=== PATIENT | male | born 1985 | race Caucasian/White ===

== ENCOUNTER → 2016-08-21 | Outpatient (REF) | payer OTHER | LOC: M LAB REF 12:44 | PROVIDERS: ATTEND Nurse Practitioner Family | DX: R36.9 Urethral discharge, unspecified (principal); R32 Unspecified urinary incontinence ==

== ENCOUNTER → 2016-09-02 | Outpatient (REF) | payer OTHER, BC | LOC: M SMT 13:10 | PROVIDERS: ATTEND Nurse Practitioner Women's Health | DX: N41.9 Inflammatory disease of prostate, unspecified (principal); R36.9 Urethral discharge, unspecified ==

== ENCOUNTER → 2016-10-01 | Outpatient (CLI) | payer OTHER ==
--- NOTE | 2016-10-01 09:22 | REP ---
Clinical: Pain. Technique: AP, lateral, bilateral oblique and coned-down views. Findings: Mild chronic-appearing compression deformity at the L2 level may represent old injury. Alignment and lordosis is otherwise maintained. No obvious acute fracture / compression injury or subluxation appreciated. Mild to moderate multilevel degenerative changes include endplate sclerosis and irregularity at the L1-2 and L2-3 levels as well as small anterior osteophyte at the L3-4 level along with minimal disc space narrowing at L3-4, L4-5. Impression: Degenerative changes as described above. If the patient remains symptomatic MRI may be warranted for further investigation. Signed by Kirt Cloe MD 10/01/2016 09:13 A
--- NOTE | 2016-10-01 09:34 | REP ---
Clinical: Pain. Technique: AP, lateral, flexion/extension, bilateral oblique and open mouth views. Findings: Moderate focal degenerative disc osteophyte complex at the C6-7 level includes anterior spurring, endplate sclerosis and disc space narrowing. Mild disc space narrowing at the C5-6 level is also appreciated. The remainder of the examination appears relatively normal. Impression: Moderate focal degenerative disc osteophyte complex at the C6-7 level. Signed by Kirt Cole MD 10/01/2016 09:26 A
[2016-10-01 09:59] LABS: MEAN CORPUSCULAR HEMOGLOBIN 34.1 pg (27.0-33.0); MEAN CORPUSCULAR HGB CONC 34.7 g/dl (32.0-36.5); MEAN CORPUSCULAR VOLUME 98.2 fl (80.0-96.0); RED CELL DISTRIBUTION WIDTH 11.9 % (11.5-14.5); WHITE BLOOD COUNT 10.1 K/mm3 (4.0-10.0)
[2016-10-01 10:20] LABS: ALBUMIN/GLOBULIN RATIO 1.29 (1.00-1.93); ALKALINE PHOSPHATASE 43 U/L (45-117); ALT/SGPT 22 U/L (12-78); ANION GAP 6 MEQ/L (8-16); AST/SGOT 16 U/L (15-37); BILIRUBIN,TOTAL 0.5 MG/DL (0.2-1.0); BLOOD UREA NITROGEN 12 MG/DL (7-18); CALCIUM LEVEL 9.4 MG/DL (8.5-10.1); CARBON DIOXIDE LEVEL 33 MEQ/L (21-32); CHLORIDE LEVEL 104 MEQ/L (98-107); CHOLESTEROL LEVEL 212 MG/DL (<200); GLOMERULAR FILTRATION RATE > 60.0 (>60); GLUCOSE, FASTING 88 MG/DL (70-105); POTASSIUM SERUM 4.4 MEQ/L (3.5-5.1); SODIUM LEVEL 143 MEQ/L (136-145); TOTAL PROTEIN 7.1 GM/DL (6.4-8.2); TRIGLYCERIDES LEVEL 191 MG/DL (<150)
[2016-10-01 14:26] LABS: HIV SCRN NEGATIVE (NEGATIVE)
[2016-10-01 14:27] LABS: CONTROL LINE INT CTR LINE PRESENT; HIV SCRN1 NEGATIVE (NEGATIVE)
== END ==
LOC: M WUC 08:13
PROVIDERS: ATTEND Nurse Practitioner Family
DX: M50.323 Other cervical disc degeneration at C6-C7 level (principal); M51.36 Other intervertebral disc degeneration, lumbar region; R39.11 Hesitancy of micturition; R32 Unspecified urinary incontinence; R00.2 Palpitations; Z13.220 Encounter for screening for lipoid disorders; R36.9 Urethral discharge, unspecified; Z11.4 Encounter for screening for human immunodeficiency virus [HIV]; Z78.9 Other specified health status

== ENCOUNTER → 2021-01-04 | Outpatient (REF) | payer OTHER | LOC: M LAB REF 17:03 | PROVIDERS: ATTEND Physician Assistant | DX: J02.9 Acute pharyngitis, unspecified (principal) ==

== ENCOUNTER → 2022-01-08 | Outpatient (REF) | payer OTHER | LOC: M LAB REF 21:50 | PROVIDERS: ATTEND Physician Assistant Medical | DX: R50.9 Fever, unspecified (principal); M79.10 Myalgia, unspecified site ==

== ENCOUNTER → 2024-03-15 | Outpatient (REF) | payer OTHER | LOC: M LAB REF 13:48 | PROVIDERS: ATTEND Nurse Practitioner Family | DX: Z11.9 Encounter for screening for infectious and parasitic diseases, unspecified (principal) ==

== ENCOUNTER → 2024-03-29 | Outpatient (CLI) | payer OTHER | LOC: M EKG 14:52 | PROVIDERS: ATTEND Nurse Practitioner Family | DX: R00.1 Bradycardia, unspecified (principal) ==

== ENCOUNTER → 2024-08-18 | Outpatient (CLI) | payer OTHER, SELFPAY ==
[2024-08-18 18:18] LABS: AMPHETAMINES URINE REFLEX NEGATIVE (NEGATIVE); BARBITURATES URINE REFLEX NEGATIVE (NEGATIVE); BENZODIAZEPINES URINE REFLEX NEGATIVE (NEGATIVE); COCAINE METABOLITE URINE REFLE NEGATIVE (NEGATIVE); METHADONE URINE REFLEX NEGATIVE (NEGATIVE)
[2024-08-18 18:19] LABS: OPIATES URINE REFLEX NEGATIVE (NEGATIVE); PHENCYCLIDINE URINE REFLEX NEGATIVE (NEGATIVE)
[2024-08-18 18:42] LABS: CANNABINOIDS URINE REFLEX PENDING CONFIRMATION (NEGATIVE)
[2024-08-22 02:53] LABS: UR ALCOHOL NOTE Please note:; URINE ALCOHOL ETHYL Negative; URINE ALCOHOL NOTE 2 Please note:
[2024-08-22 12:07] LABS: Cannabinoid Positive (.); Carboxy THC Conf, MS, UR >300 ng/mL (Cutoff=10)
== END ==
LOC: M PLALAB 14:28
PROVIDERS: ATTEND Registered Nurse Psychiatric/Mental Health
DX: Z79.899 Other long term (current) drug therapy (principal)
CPT/HCPCS: 36415; 80307; G0480

== ENCOUNTER → 2024-08-24 | Outpatient (CLI) | payer OTHER, SELFPAY | LOC: M SOG 07:54 | PROVIDERS: ATTEND Physician Assistant | DX: M50.322 Other cervical disc degeneration at C5-C6 level (principal); M50.323 Other cervical disc degeneration at C6-C7 level ==

== ENCOUNTER 2024-09-09 13:37 | Outpatient (RCR) | payer OTHER | END 2024-09-10 | LOC: M PT 13:37 | PROVIDERS: ATTEND Physician Assistant | DX: M50.123 Cervical disc disorder at C6-C7 level with radiculopathy (principal); M50.122 Cervical disc disorder at C5-C6 level with radiculopathy; M62.838 Other muscle spasm ==

== ENCOUNTER 2024-10-06 12:15 | Outpatient (RCR) | payer OTHER | END 2024-10-08 | LOC: M PT 12:15 | PROVIDERS: ATTEND Physician Assistant | DX: M50.123 Cervical disc disorder at C6-C7 level with radiculopathy (principal); M50.122 Cervical disc disorder at C5-C6 level with radiculopathy; M62.838 Other muscle spasm ==

== ENCOUNTER 2024-10-27 10:45 | Outpatient (RCR) | payer OTHER | END 2024-11-08 | LOC: M PT 10:45 | PROVIDERS: ATTEND Physician Assistant | DX: M50.123 Cervical disc disorder at C6-C7 level with radiculopathy (principal); M50.122 Cervical disc disorder at C5-C6 level with radiculopathy ==

== ENCOUNTER → 2024-11-25 | Outpatient (CLI) | payer OTHER | LOC: M RAD 15:48 | PROVIDERS: ATTEND Physician Assistant | DX: M50.123 Cervical disc disorder at C6-C7 level with radiculopathy (principal); M47.22 Other spondylosis with radiculopathy, cervical region; M48.02 Spinal stenosis, cervical region ==

== ENCOUNTER → 2024-12-05 | Outpatient (REF) | payer OTHER | LOC: M LAB REF 18:08 | PROVIDERS: ATTEND Physician Assistant Medical | DX: B34.9 Viral infection, unspecified (principal) ==

== ENCOUNTER → 2024-12-16 | Outpatient (REF) | payer OTHER | LOC: M LAB REF 11:37 | PROVIDERS: ATTEND Physician Assistant | DX: B34.9 Viral infection, unspecified (principal) ==

== ENCOUNTER 2025-06-14 17:03 | Emergency (ER) | payer OTHER, SELFPAY ==
[~2025-06-14] VITALS: Ht 172.7 cm; Wt 65.0 kg
[2025-06-14 18:04] LABS: BASO # 0.1 10^3/uL (0.0-0.2); BASO % 0.5 % (0.0-1.0); EOS # 0.1 10^3/uL (0.0-0.5); EOS % 0.6 % (0.0-3.0); LYMPH # 2.2 10^3/uL (1.5-5.0); LYMPH % 16.9 % (24.0-44.0); MONO # 0.7 10^3/uL (0.0-0.8); MONO % 5.1 % (2.0-8.0); NEUTROPHILS # 10.1 10^3/uL (1.5-8.5); NEUTROPHILS % 76.4 % (36.0-66.0); PLATELET COUNT, AUTOMATED 260 10^3/uL (150-450)
[2025-06-14 18:22] LABS: CK-MB VALUE MASS 1.5 NG/ML (<3.6)
[2025-06-14 18:23] LABS: ETHYL ALCOHOL (ETHANOL) 0.006 % (0.000-0.010)
[2025-06-14 18:24] LABS: SALICYLATE LEVEL < 3.0 MG/DL (<30)
[2025-06-14 18:25] LABS: ALT/SGPT 18 U/L (7.0-40); AST/SGOT 23 U/L (<34); CALCIUM LEVEL 9.9 MG/DL (8.5-10.1); CARBON DIOXIDE LEVEL 27 MMOL/L (20-31); CHLORIDE LEVEL 106 MMOL/L (98-107); CREATININE FOR GFR 1.00 MG/DL (0.70-1.30); GLOMERULAR FILTRATION RATE > 90.0 (>60); POTASSIUM SERUM 4.6 MMOL/L (3.5-5.1); SODIUM LEVEL 143 MMOL/L (136-145)
[2025-06-14 18:27] LABS: CPK CREATINE PHOSPHOKINASE 129 U/L (46-171); MB/CK RELATIVE INDEX 1.16 (< OR =4)
[2025-06-14 19:36] LABS: AMPHETAMINES LEVEL URINE NEGATIVE (NEGATIVE); BARBITURATES URINE NEGATIVE (NEGATIVE); BENZODIAZEPINES URINE NEGATIVE (NEGATIVE); COCAINE METABOLITE URINE NEGATIVE (NEGATIVE); METHADONE URINE NEGATIVE (NEGATIVE); OPIATES URINE NEGATIVE (NEGATIVE); PHENCYCLIDINE URINE NEGATIVE (NEGATIVE)
[2025-06-14 19:37] LABS: CANNABINOIDS URINE POSITIVE (NEGATIVE)
[2025-06-14 19:38] LABS: CK-MB VALUE MASS 1.4 NG/ML (<3.6)
[2025-06-14 19:40] LABS: CPK CREATINE PHOSPHOKINASE 117.0 U/L (46-171); MB/CK RELATIVE INDEX 1.19 (< OR =4)
[2025-06-14] MEDS: NS (Normal Saline) 0.9% 1,000 ML IV ONE (20:09)
[2025-06-14] MEDS ORDERED: HYDR50TA70 PO (21:03)
[2025-06-14 21:08] VITALS: BP 133/80; TEMP 98.4; O2SAT 100
== END 2025-06-14 21:24 | disposition home or self-care (01) ==
LOC: M ED 17:03
DX: F43.0 Acute stress reaction (principal); F41.0 Panic disorder [episodic paroxysmal anxiety]; F42.9 Obsessive-compulsive disorder, unspecified; F17.200 Nicotine dependence, unspecified, uncomplicated; Z79.899 Other long term (current) drug therapy